=== PATIENT | male | born 1995 | race Caucasian/White ===

== ENCOUNTER 2023-02-05 22:50 | Emergency (ER) | payer OTHER ==
[2023-02-06] MEDS ORDERED: Ketorolac Tromethamine 30 MG/ML VIAL ONE (01:02)
== END 2023-02-06 02:14 | disposition home or self-care (01) ==
LOC: ERS 22:50
DX: S42.021A Displaced fracture of shaft of right clavicle, initial encounter for closed fracture (principal); S09.90XA Unspecified injury of head, initial encounter; V80.02XA Occupant of animal-drawn vehicle injured by fall from or being thrown from animal-drawn vehicle in noncollision accident, initial encounter
CPT/HCPCS: 70450; 71045; 72125; 96374; J1885